=== PATIENT | male | born 1965 | race Caucasian/White ===

== ENCOUNTER 2017-02-02 20:55 | Emergency (ER) | payer SELFPAY | END 2017-02-02 22:23 | disposition home or self-care (01) | LOC: CED 20:55 → CFTX 20:55 | DX: T16.2XXA Foreign body in left ear, initial encounter (principal); Z88.1 Allergy status to other antibiotic agents; X58.XXXA Exposure to other specified factors, initial encounter | CPT/HCPCS: 69200; 99283 ==